=== PATIENT | male | born 2000 | race Two or more races ===

== ENCOUNTER 2023-09-24 05:04 | Emergency (ER) | payer SELFPAY ==
[~2023-09-24] VITALS: Ht 195.6 cm; Wt 85.0 kg
[2023-09-24 05:06] VITALS: BP 136/79; PULSE 88; RESP 16; TEMP 98.3
== END 2023-09-24 05:52 | disposition home or self-care (01) ==
LOC: EMS 05:05
DX: T16.1XXA Foreign body in right ear, initial encounter (principal); W45.8XXA Other foreign body or object entering through skin, initial encounter; Y93.89 Activity, other specified; Y92.89 Other specified places as the place of occurrence of the external cause; Y99.8 Other external cause status
CPT/HCPCS: 99284; Z7502